=== PATIENT | female | born 1925 | race Caucasian/White ===

== ENCOUNTER 2017-02-10 17:08 | Emergency (ER) | payer MEDICARE, BC ==
[~2017-02-10] VITALS: Ht 157.5 cm; Wt 59.0 kg
--- NOTE | 2017-02-10 17:50 | Emergency Room Report ---
History of Present Illness General Chief Complaint: Generalized Weakness Source: Patient, EMS Present Illness HPI 89-year-old female, history of mitral valve replacement on eliquis, history of TIAs, hypertension, presenting with episode of numbness and slurred speech. Patient states that she has had a history of this same thing happen to her in the past. States that she was at home with her caregiver, she felt that her speech was slurred and fell to her left hand was slightly numb. Patient states that it passed after 30 minutes. Patient also stating that she has had generalized weakness today. Denies any current fever chills chest pain shortness of breath abdominal pain Allergies: Coded Allergies: SULFA (SULFONAMIDE ANTIBIOTICS) (Verified Allergy, Unknown, 02/10/17) Patient History Past Medical History: see triage record Past Surgical History: none Pertinent Family History: none Reviewed Nursing Documentation: PMH: Agreed, PSxH: Agreed Nursing Documentation-PMH Past Medical History: No History, Except For Hx Hypertension: Yes Hx Diabetes: Yes Hx Cerebrovascular Accident: Yes - TIA Review of Systems All Other Systems: negative except mentioned in HPI Physical Exam Vital Signs Date Time Temp Pulse Resp B/P (MAP) Pulse Ox O2 Delivery O2 Flow Rate FiO2 02/10/17 17:03 97.9 88 20 119/85 99 Room Air Sp02 EP Interpretation: reviewed, normal General Appearance: alert, GCS 15, non-toxic, mild distress Head: normocephalic, atraumatic Eyes: bilateral eye normal inspection, bilateral eye PERRL, bilateral eye EOMI ENT: normal ENT inspection, normal pharynx, normal voice, moist mucus membranes Neck: normal inspection, full range of motion, supple Respiratory: normal inspection, lungs clear, normal breath sounds, no respiratory distress, no retraction, no wheezing, speaking full sentences, chest symmetrical Cardiovascular #1: normal inspection, regular rate, rhythm, no edema, normal capillary refill Cardiovascular #2: 2+ radial (R), 2+ radial (L) Gastrointestinal: normal inspection, non tender, soft, non-distended, no guarding Musculoskeletal: normal inspection, back normal, normal range of motion, non- tender Neurologic: normal inspection, alert, oriented x3, responsive, motor strength/ tone normal, sensory intact, speech normal Psychiatric: normal inspection, judgement/insight normal, memory normal Skin: warm/dry, well hydrated, normal turgor, other - ecchymosis to extremities Medical Decision Making Diagnostic Impression: Primary Impression: Transient neurological symptoms ER Course 89-year-old female with an episode of slurred speech and left hand numbness occurred approximately 3 hours ago and resolved after 30 minutes DDX: TIA/CVA Electrolyte disturbance, dehydration Plan: Obtain labs, ua, EKG, CXR CT head ER course: Patient has been monitored during ED stay Has remained asymptomatic, ANO x4 I spoke extensively to patient's primary care doctor, Dr. Restrepo. He states that patient has been having these symptoms for the last 3 months. Patient states that she has been admitted to [facility] at least 4 times in the last 2 months. They have done extensive workup on her including multiple MRIs (even if patient has pacemaker) and never find any cause. She was seen by a neurologist and was diagnosed with possible TIA versus migraine versus paresthesias. Patient has been asymptomatic during her ED stay. Patient has her at bedside. Pt will be DCed to home with strict PMD follow up Disposition: Patient is to be DISCHARGED to home FU with PMD Dr Restrepo in 3 days without fail Please note that this Emergency Department Report was dictated using [employer] technology software, occasionally this can lead to erroneous entry secondary to interpretation by the dictation equipment. EKG Diagnostic Results EP Interpretation: Yes Rate: normal Rhythm: NSR ST Segments: ST depressions V5 V6 ASA given to patient: No Rhythm Strip EP Interpretation: Yes Rate: 74 Rhythm: NSR, no PVCs, no ectopy Chest X-ray CXR: Ordered: Yes 1 view Indication: Altered mental status EP interpretation: Yes Interpretation: Mild cardiomegaly, pacemaker noted left chest, mild pulmonary vascular congestion Impression: cardiomegaly mild phlm vasc congestion Electronically signed by Richard Mccoy MD Laboratory Tests Test 02/10/17 17:48 White Blood Count 6.0 K/UL (4.8-10.8) Red Blood Count 3.96 M/UL (4.20-5.40) L Hemoglobin 10.1 G/DL (12.0-16.0) L Hematocrit 33.6 % (37.0-47.0) L Mean Corpuscular Volume 85 FL (80-99) Mean Corpuscular Hemoglobin 25.6 PG (27.0-31.0) L Mean Corpuscular Hemoglobin Concent 30.2 G/DL (32.0-36.0) L Red Cell Distribution Width 15.4 % (11.6-14.8) H Platelet Count 125 K/UL (150-450) L Mean Platelet Volume 6.9 FL (6.5-10.1) Neutrophils (%) (Auto) 72.6 % (45.0-75.0) Lymphocytes (%) (Auto) 13.5 % (20.0-45.0) L Monocytes (%) (Auto) 7.8 % (1.0-10.0) Eosinophils (%) (Auto) 5.2 % (0.0-3.0) H Basophils (%) (Auto) 0.9 % (0.0-2.0) Prothrombin Time 10.9 SEC (9.30-11.50) Prothrombin Time INR 1.0 (0.9-1.1) PTT 28 SEC (23-33) Sodium Level 139 MMOL/L (136-145) Potassium Level 4.0 MMOL/L (3.5-5.1) Chloride Level 102 MMOL/L (98-107) Carbon Dioxide Level 29 MMOL/L (21-32) Anion Gap 8 mmol/L (5-15) Blood Urea Nitrogen 29 mg/dL (7-18) H Creatinine 1.3 MG/DL (0.55-1.30) Estimate Glomerular Filtration Rate mL/min (>60) Glucose Level 133 MG/DL (74-106) H Lactic Acid Level 3.80 mmol/L (0.66-2.22) H Calcium Level 8.7 MG/DL (8.5-10.1) Total Bilirubin 0.2 MG/DL (0.2-1.0) Aspartate Amino Transferase (AST) 32 U/L (15-37) Alanine Aminotransferase (ALT) 32 U/L (12-78) Alkaline Phosphatase 83 U/L (46-116) Total Creatine Kinase 61 U/L (26-308) Troponin I 0.017 ng/mL (0.000-0.056) Pro-B-Type Natriuretic Peptide 571 pg/mL (0-125) H Total Protein 7.8 G/DL (6.4-8.2) Albumin 3.0 G/DL (3.4-5.0) L Globulin 4.8 g/dL Albumin/Globulin Ratio 0.6 (1.0-2.7) L CT/MRI/US Diagnostic Results CT/MRI/US Diagnostic Results : Imaging Test Ordered: CT Head Impression CT HEAD: No acute intracranial hemorrhage or cortical ischemia. No skull fracture. Chronic ischemic changes. Cannot exclude [id number] ischemia. Last Vital Signs Date Time Temp Pulse Resp B/P (MAP) Pulse Ox O2 Delivery O2 Flow Rate FiO2 02/10/17 17:03 97.9 88 20 119/85 99 Room Air Disposition: HOME, SELF-CARE Condition: Improved Patient Instructions: Paresthesia, [id number], Transient Ischemic Attack, [id number] Richard Mccoy M.D. Feb 10, 2017 17:50
[2017-02-10 18:14] LABS: BASOPHILS % (AUTO) 0.9 % (0.0-2.0); EOSINOPHILS % (AUTO) 5.2 % (0.0-3.0); HEMATOCRIT 33.6 % (37.0-47.0); HEMOGLOBIN 10.1 G/DL (12.0-16.0); LYMPHOCYTES % (AUTO) 13.5 % (20.0-45.0); MEAN CORPUSCULAR VOLUME 85 FL (80-99); MONOCYTES % (AUTO) 7.8 % (1.0-10.0); NEUTROPHILS % (AUTO) 72.6 % (45.0-75.0); PLATELET COUNT 125 K/UL (150-450); RED BLOOD COUNT 3.96 M/UL (4.20-5.40); RED CELL DISTRIBUTION WIDTH 15.4 % (11.6-14.8)
[2017-02-10 18:19] VITALS: BP 119/85
[2017-02-10 18:29] LABS: ANION GAP 8 mmol/L (5-15); BLOOD UREA NITROGEN 29 mg/dL (7-18); CALCIUM 8.7 MG/DL (8.5-10.1); CARBON DIOXIDE 29 MMOL/L (21-32); CHLORIDE 102 MMOL/L (98-107); CREATININE 1.3 MG/DL (0.55-1.30); SODIUM 139 MMOL/L (136-145)
[2017-02-10] MEDS ORDERED: Aspirin Baby 81mg ORAL ONE (18:30)
[2017-02-10 18:40] LABS: ALANINE AMINOTRANSFERASE 32 U/L (12-78); ALBUMIN/GLOBULIN RATIO 0.6 (1.0-2.7); ALKALINE PHOSPHATASE 83 U/L (46-116); ASPARTATE AMINO TRANSFERASE 32 U/L (15-37); BILIRUBIN,TOTAL 0.2 MG/DL (0.2-1.0); CREATINE KINASE 61 U/L (26-308)
[2017-02-10] MEDS ORDERED: ASPIR 8181 MG ORAL (18:43)
[2017-02-10] MEDS ORDERED: ATORVASTATIN CA10 MG ORAL (18:43)
[2017-02-10 19:28] VITALS: BP 164/55
[2017-02-10 19:30] VITALS: BP 164/55
[2017-02-10 19:38] LABS: APPEARANCE,URINE CLEAR; BILIRUBIN, URINE NEGATIVE (NEGATIVE); COLOR,URINE PALE YELLOW; GLUCOSE, URINE (UA) NEGATIVE (NEGATIVE); KETONES,URINE NEGATIVE (NEGATIVE); LEUKOCYTE ESTERASE ,URINE NEGATIVE (NEGATIVE); NITRITE,URINE NEGATIVE (NEGATIVE); PH,URINE 7 (4.5-8.0); PROTEIN,URINE NEGATIVE (NEGATIVE); UROBILINOGEN,URINE NORMAL MG/DL (0.0-1.0)
--- NOTE | 2017-02-11 08:46 | Diagnostic Imaging Report ---
Indications: Altered mental status Technique: Spiral acquisitions obtained through the brain. Angled axial and coronal 5 x 5 mm slices were reconstructed. Total dose length product 1249.41 mGycm. CTDI vol(s) 70.38 mGy. Dose reduction achieved using automated exposure control Comparison: None. Findings: There is age-related enlargement of the ventricles and extra axial CSF spaces. Old lacunar infarcts are seen within the right caudate, the anterior limb of the right internal capsule, and in the left hypothalamus and the anterior limb of the left internal capsule. Old infarct also seen in the right martinez radiata. No acute intracranial hemorrhage or edema. No mass effect or midline shift. There is periventricular deep white matter chronic ischemic change. Visualized orbits and sinuses are unremarkable. The calvarium is intact. Impression: Chronic and age-related changes. Negative for acute intracranial bleed or mass effect This agrees with the preliminary interpretation provided overnight by [facility]. The CT scanner at [facility] is accredited by the [employer] [place] [employer] and the scans are performed using protocols designed to limit radiation exposure to as low as reasonably achievable to attain images of sufficient resolution adequate for diagnostic evaluation.
--- NOTE | 2017-02-11 09:11 | Diagnostic Imaging Report ---
Indication: Shortness of breath Technique: One view of the chest Comparison: none Findings: The heart is enlarged. There is some atelectasis at the left lung base. There is a left chest pacemaker. There is a percutaneous aortic valve prosthesis. Impression: Cardiomegaly Left basilar atelectasis No acute process otherwise Postsurgical changes, as described
--- NOTE | 2017-02-23 00:20 | Cardiology Report ---
APPROVED REPORT EKG Measurement Heart [id number] CT [id number] Normal sinus rhythm Anteroseptal infarct, age undetermined Abnormal ECG
== END 2017-02-10 19:42 | disposition home or self-care (01) ==
LOC: EDBD 17:08 → EMR 17:31
DX: R29.90 Unspecified symptoms and signs involving the nervous system (principal); R47.81 Slurred speech; R20.0 Anesthesia of skin; I10 Essential (primary) hypertension; E11.9 Type 2 diabetes mellitus without complications; Z86.73 Personal history of transient ischemic attack (TIA), and cerebral infarction without residual deficits; Z88.2 Allergy status to sulfonamides
CPT/HCPCS: 36415; 70450; 71010; 80053; 81003; 82550; 83605; 83880; 84484; 85025; 85610; 85730; 87040; 93005; 96360; 99284